=== PATIENT | male | born 1955 | race Two or more races ===

== ENCOUNTER 2024-05-28 16:14 | Emergency (ER) | payer SELFPAY ==
[~2024-05-28] VITALS: Ht 170.2 cm; Wt 71.0 kg
[2024-05-28 16:21] VITALS: O2SAT 100
[2024-05-28 17:31] LABS: BASOPHILS % 0.5 % (0.0-2.0); EOSINOPHILS % 0.1 % (0.0-5.0); HEMATOCRIT. 24.8 % (42.0-52.0); HEMOGLOBIN. 8.1 g/dL (14.0-18.0); MEAN CORPUSCULAR HEMOGLOBIN 26.6 pg (28.0-32.0); MEAN CORPUSCULAR HGB CONC 32.7 g/dL (31.0-37.0); MEAN CORPUSCULAR VOLUME 81.4 fL (80.0-94.0); MONOCYTES % 6.7 % (2.0-8.0); NEUTROPHILS % 57.7 % (40.0-76.0); PLATELET 228 x1000/uL (130-400); RED BLOOD CELL COUNT 3.04 mill/uL (4.7-6.1); RED CELL DISTRIBUTION WIDTH 20.4 % (11.6-14.6)
[2024-05-28 17:33] LABS: CHLORIDE 105 mEq/L (98-107); POTASSIUM 4.8 mEq/L (3.5-5.1); SODIUM 134 mEq/L (136-145)
[2024-05-28 17:34] LABS: CALCIUM 8.4 mg/dL (8.7-10.4); CARBON DIOXIDE 21 mEq/L (21-32)
[2024-05-28 17:39] LABS: CREATININE 1.2 mg/dL (0.6-1.3); GLUCOSE 179 mg/dL (70-105); UREA NITROGEN BLOOD 28 mg/dL (9-23)
[2024-05-28 17:41] LABS: TROPONIN I HIGH SENSITIVITY 27 ng/L (3.0-53)
[2024-05-28] MEDS ORDERED: MULT-276 MT (18:20)
[2024-05-28 19:35] VITALS: BP 116/53; PULSE 84; RESP 13; TEMP 36.66960; O2SAT 100
[2024-05-28 19:54] LABS: INR 1.1; PROTHROMBIN TIME 12.1 sec (9.6-11.0)
[2024-05-28] MEDS: CEFTRIAXONE 1GM/50ML 50 ML IV ONE (19:54)
[2024-05-28] MEDS: SODIUM CHLORIDE 0.9% 1000ML BAG (SEPSIS BOLUS) IV ONE (19:55)
[2024-05-28 20:45] LABS: LACTIC ACID 2.7 mmol/L (0.4-2.0)
== END 2024-05-28 21:30 | disposition left against medical advice (07) ==
LOC: ER 16:14 → EDBEDREQ 20:28 → EDBEDREQTM 20:28 → ER 21:30
DX: R25.2 Cramp and spasm (principal); Z98.890 Other specified postprocedural states
CPT/HCPCS: 80048; 83605; 85025; 85610; 87040; 84484; 36415; 84145; 71045; 93005; 96365; 99285; J0696; Z7610 ×3